=== PATIENT | female | born 1945 | race Caucasian/White ===

== ENCOUNTER 2019-05-21 09:50 | Outpatient (CLI) | payer MEDICARE ==
[2019-05-21 13:35] LABS: BASOPHILS # (AUTO) 0.07 x10^3/uL (0-0.1); BASOPHILS % (AUTO) 1 % (0-1); EOSINOPHILS % (AUTO) 6 % (1-7); LYMPHOCYTES # (AUTO) 2.07 x10^3/uL (1-3.4); LYMPHOCYTES % (AUTO) 23 % (22-44); MD NO; MEAN CORPUSCULAR HEMOGLOBIN 29.1 pg (27.0-34.8); MEAN CORPUSCULAR HGB CONC 33.3 g/dL (32.4-35.8); MEAN CORPUSCULAR VOLUME 87.6 fL (80-100); MEAN PLATELET VOLUME 9.8 fL (7.4-10.4); MONOCYTES # (AUTO) 0.74 x10^3/uL (0.2-0.8); MONOCYTES % (AUTO) 8 % (2-9); NEUTROPHILS # (AUTO) 5.52 x10^3/uL (1.8-6.8); NEUTROPHILS % (AUTO) 62 % (42-75); PLATELET COUNT 237 x10^3/uL (130-400); RED BLOOD COUNT 4.85 x10^6/uL (3.82-5.3); RED CELL DISTRIBUTION WIDTH 14.7 % (9.6-15.2)
[2019-05-21 14:34] LABS: CHLORIDE 106 mmol/L (98-107)
[2019-05-21 14:45] LABS: ALANINE AMINOTRANSFERASE 32 U/L (12-78); ALBUMIN 3.9 g/dL (3.4-5.0); ALKALINE PHOSPHATASE 124 U/L (45-117); ANION GAP 5 mmol/L (5-15); BILIRUBIN,TOTAL 0.5 mg/dL (0.2-1.0); CALCIUM 9.7 mg/dL (8.5-10.1); CHOL/HDL RATIO 2.5; CHOLESTEROL, TOTAL 162 mg/dL (140-239); CREATININE 0.88 mg/dL (0.55-1.02); FREE T4 (FREE THYROXINE) 1.01 ng/dL (0.76-1.46); HDL CHOL % 41 % (28-40); HDL CHOLESTEROL (DIRECT) 66 mg/dL (40-60); LDL CHOLESTEROL,CALCULATED 78 mg/dL (54-169); LDL/HDL RATIO 1.2 (0.5-3.0); TOTAL PROTEIN 7.5 g/dL (6.4-8.2); TRIGLYCERIDES 90 mg/dL (50-200); VLDL CHOLESTEROL 18 mg/dL (0-25)
== END 2019-05-21 23:59 | disposition home or self-care (01) ==
LOC: CFH 09:50
DX: M85.88 Other specified disorders of bone density and structure, other site (principal); N95.8 Other specified menopausal and perimenopausal disorders; E66.3 Overweight; I10 Essential (primary) hypertension
CPT/HCPCS: 36415; 77080; 80053; 80061; 83036; 84439; 84443; 85025

== ENCOUNTER 2019-08-08 19:21 | Emergency (ER) | payer MEDICARE ==
[~2019-08-08] VITALS: Ht 154.9 cm; Wt 91.8 kg
--- NOTE | 2019-08-08 19:53 | NUR ---
THIS IS A 73 YO FEMALE COMING IN FOR LOWER BACK MUSCLE SPASMS STARTING AT APPROX 1500 TODAY WHILE AT WORK. HX OF NECK FUSION & MULT SPINAL SX L4-6. TOOK 800MG IBUPROFEN WITHOUT RELIEF. PATIENT STATES THIS HAS HAPPENED BEFORE, TREATED WITH TORADOL AND MUSCLE RELAXANT IN THE PAST. A&OX4, AMBULATORY IN ROOM. VSS, CALL LIGHT IN REACH, SPO2 AND BP MONITORING IN PLACE
[2019-08-08] MEDS ORDERED: DIAZEPAM 5 MG/ML, 2ML ONE (20:22)
[2019-08-08] MEDS ORDERED: KETOROLAC 30 MG/1 ML ONE (20:23)
[2019-08-08] MEDS ORDERED: DIAZEPAM 5 MG/ML, 2ML IM ONE (20:30)
[2019-08-08] MEDS ORDERED: KETOROLAC 30 MG/1 ML IM ONE (20:30)
[2019-08-08 20:33] VITALS: BP 113/47
--- NOTE | 2019-08-08 20:33 | NUR ---
PATIENT MEDICATED PER EMAR, TOLERATED WELL. WILL CONTINUE TO MONITOR
--- NOTE | 2019-08-08 21:07 | NUR ---
Patient/Caregiver given discharge instructions and they have confirmed that they understand the instructions. Patient ambulatory with steady gait.
== END 2019-08-08 21:10 | disposition home or self-care (01) ==
LOC: ED 19:50
DX: S29.011A Strain of muscle and tendon of front wall of thorax, initial encounter (principal); Z85.3 Personal history of malignant neoplasm of breast; X58.XXXA Exposure to other specified factors, initial encounter; Y93.89 Activity, other specified; Y92.89 Other specified places as the place of occurrence of the external cause; Y99.8 Other external cause status
CPT/HCPCS: 96372; 99284; J1885; J3360